=== PATIENT | female | born 1965 | race Caucasian/White ===

== ENCOUNTER 2018-06-09 05:48 | Inpatient (IN) | payer OTHER, SELFPAY ==
[2018-06-09] VITALS (13 sets, daily range): BP systolic 84–126; BP diastolic 53–68; PULSE 82–129; RESP 12–25; TEMP 36.2–37.4; O2SAT 89–96; BMI 33.5
--- NOTE | 2018-06-09 06:26 | DI.RAD.S_ITS ---
PROCEDURE: XR ACUTE ABDOMEN SERIES INDICATIONS: Abdominal pain TECHNIQUE: One view chest and two views of the abdomen were acquired. COMPARISON: None. FINDINGS: Surgical changes and devices: None. Chest: Lungs are clear. Heart size is normal. No pleural effusions. No pneumoperitoneum. Abdomen: Scattered air-fluid levels are present and there are dilated bowel loops measuring up to 6.0 cm in the left abdomen. No suspicious calcifications. Visualized solid organ contours appear normal. Bones: No suspicious bony lesions. Scattered discogenic changes and mild bilateral hip joint degeneration. IMPRESSION: Bowel gas pattern suggesting partial or developing small bowel obstruction. No definite transition point identified. Recommend clinical correlation and if needed continued surveillance with serial abdominal series radiographs Dictated by: Mateo Stephenson M.D. on 06/09/2018 at 8:21 Approved by: Mateo Stephenson M.D. on 06/09/2018 at 8:23
--- NOTE | 2018-06-09 06:30 | ED.ABDPAIN ---
HPI - Abdominal Pain General Chief Complaint: Abdominal Pain Stated Complaint: right side pain, nausea heartburn Time Seen by Provider: 06/09/18 06:00 Source: patient and family Mode of arrival: ambulatory Limitations: no limitations History of Present Illness HPI narrative: 53-year-old female with history of hypertension and hyperlipidemia as well as 3 C sections presents with increasing right-sided abdominal pain for the fast through 4 days. Additionally she has had decreased appetite and increased episodes of vomiting. She denies any bowel movement for the past few days and has passed no flatus today. Patient's pain is made much worse with any motion and improves with rest MD complaint: abdominal pain Onset (ago): day(s) Pain Consistency: constant Location: diffuse Severity: moderate Quality: cramping and aching Radiation: none Migration to: no migration Relieving factors: nothing Exacerbating factors: nothing Associated symptoms: nausea and vomiting Related Data Previous Rx's Medication Instructions Recorded simvastatin [Zocor] 40 mg PO HS #30 tab 04/28/18 levothyroxine [Synthroid] 137 mcg PO QAM #30 tab 05/25/18 lisinopril 10 mg PO QDAY #30 tab 05/25/18 Allergies Allergy/AdvReac Type Severity Reaction Status Date / Time sunflower seeds Allergy Intermediate facial Uncoded 04/02/18 09:33 swelling ERYTHROMYCIN Allergy Mild Uncoded 04/02/18 09:33 Review of Systems Review of Systems All systems reviewed & are unremarkable except as noted in HPI and below Constitutional Denies chills, Denies fever(s), Denies lethargy and Denies weakness Eyes Denies change in vision, Denies eye discharge, Denies irritation and Denies loss of vision ENT Ears, Nose, Mouth, and Throat: Denies change in voice, Denies neck pain and Denies sore throat Cardiovascular Denies chest pain, Denies irregular heart rhythm, Denies lightheadedness, Denies palpitations, Denies dyspnea, Denies dyspnea on exertion and Denies orthopnea Respiratory Denies cough, Denies dyspnea, Denies dyspnea on exertion and Denies wheezing Gastrointestinal Gastrointestinal: Reports abdominal pain, Denies change in bowel habits, Denies diarrhea, Reports nausea and Reports vomiting Genitourinary Denies hematuria, Denies flank pain, Denies urinary incontinence and Denies urinary urgency Musculoskeletal Denies neck pain Integumentary/Breasts Denies pruritus, Denies erythema, Denies rash and Denies wounds Neurologic Denies confusion, Denies loss of vision and Denies weakness Psychiatric Denies anxiety, Denies confusion, Denies depression, Denies homicidal ideation and Denies suicidal ideation Endocrine Denies palpitations Hematologic/Lymphatic Denies easy bruising Allergic/Immunologic Denies wheezing [facility] Social History Smoking Status: Never smoker Exam Narrative Exam Narrative: GENERAL: Very ill 53-year-old female, caring emesis basin HEAD: Atraumatic. Normocephalic. No temporal or scalp tenderness. EYES: Pupils equal round and reactive. Extraocular motions intact. No scleral icterus. No injection or drainage. ENT: Nose without bleeding, purulent drainage or septal hematoma. Throat without erythema, tonsillar hypertrophy or exudate. Uvula midline. Airway patent. NECK: Trachea midline. No JVD or lymphadenopathy. Supple, nontender, no meningeal signs. CARDIOVASCULAR: Tachycardic but regular. Without murmurs gallops or rubs RESPIRATORY: Clear to auscultation. Breath sounds equal bilaterally. No wheezes, rales, or rhonchi. GASTROINTESTINAL: Abdomen is soft but tender, primarily on the right side with decreased bowel sounds EXTREMITIES: No clubbing, cyanosis, or edema. No joint tenderness, effusion, or edema noted. BACK: Nontender without deformity or crepitance. No flank tenderness. NEURO: AOx3. SKIN: No rash or erythema. Initial Vital Signs Initial Vital Signs: Vital Signs Temperature 99.3 F 06/09/18 05:56 Pulse Rate 129 H 06/09/18 05:56 Respiratory Rate 18 06/09/18 05:56 Blood Pressure 84/65 L 06/09/18 05:56 Pulse Oximetry 96 06/09/18 05:56 Course Decision to Admit Date: 06/09/18 Decision to Admit time: 06:08 Orders Ordered: ED Orders 06/09/18 06:19 Complete Blood Count AUTO DIFF Stat Comprehensive Metabolic Panel Stat Lactate (Lactic Acid) Stat Lipase Stat Procalcitonin Stat 06/09/18 06:26 XR acute abdomen series Stat 06/09/18 06:30 Blood Culture Stat Hydromorphone HCl (Dilaudid) 0.5 mg IV NOW PRN PRN Reason: Pain, Severe (7-10) Last Admin: 06/09/18 08:20 Dose: 0.5 mg Sodium Chloride (Normal Saline 0.9%) 1,000 mls @ 150 mls/hr IV CONT LAN Last Admin: 06/09/18 07:45 Dose: 150 mls/hr Ondansetron HCl (Zofran) 4 mg IV Q4HR PRN PRN Reason: Nausea And Vomiting Last Admin: 06/09/18 07:45 Dose: 4 mg Discontinued Medications Lactated Ringer's (Lactated Ringers) 1,000 mls @ 1,000 mls/hr IV BOLUS ONE Stop: 06/09/18 07:14 Last Admin: 06/09/18 08:21 Dose: 1,000 mls/hr Reevaluation(s) Reevaluation #1: Patient feeling better after placement of NG tube. Over 800 cc of greenish fluid Vital Signs - 8 hr 06/09/18 05:56 06/09/18 06:38 06/09/18 06:58 Temperature 99.3 F Pulse Rate 129 H 108 H 104 H Respiratory Rate 18 25 H 18 Blood Pressure 84/65 L Blood Pressure [Right Arm] 117/63 108/66 Pulse Oximetry 96 95 93 MDM - Abdominal Pain Differential Diagnosis Differential diagnosis: Likely abdominal pain, acute appendicitis, calculus of kidney, constipation, diverticulitis, endometriosis and gastroenteritis Medical Records Attestation: I reviewed the patient's medical records. Lab Data Attestation: I reviewed the patient's lab results. Result diagrams: 06/09/18 06:19 06/09/18 06:19 Lab Results 06/09/18 06/09/18 06/09/18 Range/Units 06:19 06:19 06:19 WBC 15.4 H (4.5-11.0) X10^3/uL RBC 5.67 H (4.0-5.2) X10^6/uL Hgb 15.9 (12.0-16.0) g/dL Hct 45.5 (36-46) % MCV 80.2 (80-100) fL MCH 28.1 (26-34) PG MCHC 35.0 (30-36) % RDW 13.9 (11.6-14.8) % Plt Count 590 H (150-400) X10^3/uL Neut % (Auto) Not Reportable Lymph % (Auto) Not Reportable [place] % (Auto) Not Reportable Eos % (Auto) Not Reportable Baso % (Auto) Not Reportable Total Counted 100 Seg Neutrophils % 68.0 (38-70) % Band Neutrophils % 16.0 H (3-7) % Lymphocytes % (Manual) 9.0 L (25-45) % Atypical Lymphs % 2.0 H ( - 0) % Monocytes % (Manual) 5.0 (2-11) % Neutrophils # (Manual) 83595 H (7047-7810) /uL Platelet Estimate Increased on smear RBC Morphology Not Reportable Sodium 127 L (137-145) mmol/L Potassium 4.1 (3.4-5.1) mmol/L Chloride 82 L (98-107) mmol/L Carbon Dioxide 30 (22-32) mmol/L BUN 67 H (7-17) mg/dL Creatinine 2.50 H (0.52-1.04) mg/dL Estimated GFR 20.0 L (>60) mL/min BUN/Creatinine Ratio 26.8 H (6-22) Glucose 224 H (70-100) mg/dL Lactate (0.7-2.1) mmol/L Calcium 10.1 (8.4-10.2) mg/dL Total Bilirubin 0.9 (0.2-1.3) mg/dL AST 90 H (14-36) IU/L ALT 104 H (9-52) IU/L Alkaline Phosphatase 105 (38-126) U/L Total Protein 6.6 (6.3-8.2) g/dL Albumin 3.8 (3.5-5.0) g/dL Globulin 2.8 (1.7-4.1) g/dL Albumin/Globulin Ratio 1.4 (1.0-2.8) Lipase 261 (23-300) U/L Procalcitonin 1.00 H (<0.5) ng/mL 06/09/18 Range/Units 06:19 WBC (4.5-11.0) X10^3/uL RBC (4.0-5.2) X10^6/uL Hgb (12.0-16.0) g/dL Hct (36-46) % MCV (80-100) fL MCH (26-34) PG MCHC (30-36) % RDW (11.6-14.8) % Plt Count (150-400) X10^3/uL Neut % (Auto) Lymph % (Auto) [place] % (Auto) Eos % (Auto) Baso % (Auto) Total Counted Seg Neutrophils % (38-70) % Band Neutrophils % (3-7) % Lymphocytes % (Manual) (25-45) % Atypical Lymphs % ( - 0) % Monocytes % (Manual) (2-11) % Neutrophils # (Manual) (6212-6024) /uL Platelet Estimate RBC Morphology Sodium (137-145) mmol/L Potassium (3.4-5.1) mmol/L Chloride (98-107) mmol/L Carbon Dioxide (22-32) mmol/L BUN (7-17) mg/dL Creatinine (0.52-1.04) mg/dL Estimated GFR (>60) mL/min BUN/Creatinine Ratio (6-22) Glucose (70-100) mg/dL Lactate 1.8 (0.7-2.1) mmol/L Calcium (8.4-10.2) mg/dL Total Bilirubin (0.2-1.3) mg/dL AST (14-36) IU/L ALT (9-52) IU/L Alkaline Phosphatase (38-126) U/L Total Protein (6.3-8.2) g/dL Albumin (3.5-5.0) g/dL Globulin (1.7-4.1) g/dL Albumin/Globulin Ratio (1.0-2.8) Lipase (23-300) U/L Procalcitonin (<0.5) ng/mL Discharge Plan Departure Patient Disposition: Admitted As Inpatient Clinical Impression: Small bowel obstruction
[2018-06-09 06:55] LABS: Alanine Aminotransferase 104 IU/L (9-52); Albumin 3.8 g/dL (3.5-5.0); Albumin Globulin Ratio 1.4 (1.0-2.8); Alkaline Phosphatase 105 U/L (38-126); Aspartate Aminotransferase 90 IU/L (14-36); BUN Creatinine Ratio 26.8 (6-22); Bilirubin Total 0.9 mg/dL (0.2-1.3); Blood Urea Nitrogen 67 mg/dL (7-17); Calcium 10.1 mg/dL (8.4-10.2); Carbon Dioxide 30 mmol/L (22-32); Chloride 82 mmol/L (98-107); Globulin 2.8 g/dL (1.7-4.1); Glucose 224 mg/dL (70-100); HEMOLYSIS < 15 (0-50); Lipase 261 U/L (23-300); Potassium 4.1 mmol/L (3.4-5.1); Sodium 127 mmol/L (137-145); Total Protein 6.6 g/dL (6.3-8.2)
[2018-06-09 06:56] LABS: Lactate (Lactic Acid) 1.8 mmol/L (0.7-2.1)
[2018-06-09 07:18] LABS: Hematocrit 45.5 % (36-46); Hemoglobin 15.9 g/dL (12.0-16.0); Mean Corpuscular Hemoglobin 28.1 PG (26-34); Mean Corpuscular Volume 80.2 fL (80-100); Platelet Count 590 X10^3/uL (150-400); Red Blood Cell Count 5.67 X10^6/uL (4.0-5.2); Red Cell Distribution Width 13.9 % (11.6-14.8); White Blood Cell Count 15.4 X10^3/uL (4.5-11.0)
[2018-06-09 07:19] LABS: Add Manual Diff / Slide Review YES
[2018-06-09] MEDS: SODIUM CHLORIDE 0.9% 1,000 ML 150 ML IV (07:45)
[2018-06-09] MEDS: ONDANSETRON 4 MG/2 ML INJ IV (07:45)
[2018-06-09 07:48] LABS: Neutrophils Absolute Manual 12936 /uL (3000-5900); Total Cells Counted 100
[2018-06-09 07:49] LABS: Platelet Estimate Increased on smear
[2018-06-09] MEDS: HYDROMORPHONE 1 MG INJ 0.5 MG IV ×4 (08:20→21:05)
[2018-06-09] MEDS: LACTATED RINGERS 1,000 ML 1000 ML IV (08:21)
--- NOTE | 2018-06-09 10:09 | PC.NURSE ---
0900- Patient moved form stretcher to a hospital bed. Reports she is much more comfortable.
[2018-06-09] MEDS: TETRACAINE/BENZOCAINE/BUTAMBEN (CETACAINE) BOTTLE 1 SPRAY TOP (11:57)
[2018-06-09] MEDS: DEXTROSE 5%-0.45% NS 1,000 ML 125 ML IV (13:46)
--- NOTE | 2018-06-09 14:45 | PC.NURSE ---
admission pt arrived on the floor in a bed. States pain present in throat and abd. offered dilaudid which pt took around 1500. Sleeping afterwards. pt on continuous pulse ox, while sleeping sats around 88-90%. will recheck and place on O2 if needed. hourly rounding provided, call light within reach.
[2018-06-09] MEDS: SODIUM CHLORIDE 0.9% 1,000 ML 1000 ML IV ×2 (16:03→19:38)
--- NOTE | 2018-06-09 19:11 | P.HP_ITS ---
History of Present Illness Date Patient Seen: 06/09/18 Time Patient Seen: 10:06 Chief complaint: right side pain, nausea heartburn Narrative: Celena is a pleasant 53-year-old lady who presented to the emergency room with several days of nausea and vomiting. She reports that she initially felt quite ill Friday and Friday. She thought she was getting better after that but then started vomiting again yesterday. Her reports that she has been drinking lots of fluids but not keeping anything down. She denies any abdominal pain. She reports that she had a bowel movement yesterday and has passed a small amount of flatus as well. She denies any symptoms similar to this in the past. She does not have any known sick contacts. She has not had fever at home that she is aware of but has felt generalized malaise. Patient History Medical History delivery w/o mention of indication, delsun, shraddha hospitaliz (Acute) Family & Social History Family History: Reviewed 06/09/18 by Whit Cook MD Social History: household members spouse Prior Living Arrangements House Safety & Behavioral: Feels Safe in Current Yes Environment Been Physically Hurt or No Threatened By a Person Suicidal Ideation Description None Suicide Plan Description No Plan Tobacco & Substance use: Smoking Status Never smoker alcohol intake frequency a few times a week Substance Use Type does not use Meds Home Medications Medication Instructions Recorded Confirmed Type simvastatin [Zocor] 40 mg PO HS #30 tab 04/28/18 Rx levothyroxine [Synthroid] 137 mcg PO QAM #30 tab 05/25/18 Rx lisinopril 10 mg PO QDAY #30 tab 05/25/18 Rx Allergies Allergy/AdvReac Type Severity Reaction Status Date / Time erythromycin base Allergy Mild Verified 06/09/18 16:55 sunflower seeds Allergy Intermediate facial Uncoded 04/02/18 09:33 swelling Review of Systems Review of Systems All systems reviewed & are unremarkable except as noted in HPI and below Exam Vital Signs (past 8 hours): - 06/09/18 11:00 06/09/18 12:11 06/09/18 12:59 Temperature Pulse Rate 87 87 88 Respiratory Rate 21 18 18 Blood Pressure 111/56 L Blood Pressure [Right Arm] 107/59 L 116/61 Pulse Oximetry 93 93 93 06/09/18 16:06 06/09/18 17:28 Temperature 97.1 F L Pulse Rate 87 Respiratory Rate 16 Blood Pressure 117/66 Blood Pressure [Right Arm] Pulse Oximetry 95 94 Oxygen Delivery Method Nasal Cannula Oxygen Flow Rate 2 Narrative Exam Narrative: Very pleasant and ill but comfortable appearing lady. HEENT: Normocephalic and atraumatic, pupils equal round and reactive to light accommodation with anicteric sclera. Lungs: Clear to auscultation bilaterally Heart: Regular rate and rhythm without murmur rub or gallop. Abdomen: Soft, nontender to palpation. Hyperactive bowel sounds. Well-healed Pfannenstiel incision. No defects palpable Extremities: Warm and well perfused Objective Labs Result Diagrams: 06/09/18 06:19 06/09/18 06:19 Labs: Laboratory Results - last 24 hr 06/09/18 06/09/18 06/09/18 06:19 06:19 06:19 WBC 15.4 H RBC 5.67 H Hgb 15.9 Hct 45.5 MCV 80.2 MCH 28.1 MCHC 35.0 RDW 13.9 Plt Count 590 H Neut % (Auto) Not Reportable Lymph % (Auto) Not Reportable [place] % (Auto) Not Reportable Eos % (Auto) Not Reportable Baso % (Auto) Not Reportable Total Counted 100 Seg Neutrophils % 68.0 Band Neutrophils % 16.0 H Lymphocytes % (Manual) 9.0 L Atypical Lymphs % 2.0 H Monocytes % (Manual) 5.0 Neutrophils # (Manual) 41049 H Platelet Estimate Increased on smear RBC Morphology Not Reportable Sodium 127 L Potassium 4.1 Chloride 82 L Carbon Dioxide 30 BUN 67 H Creatinine 2.50 H Estimated GFR 20.0 L BUN/Creatinine Ratio 26.8 H Glucose 224 H Lactate Calcium 10.1 Total Bilirubin 0.9 AST 90 H ALT 104 H Alkaline Phosphatase 105 Total Protein 6.6 Albumin 3.8 Globulin 2.8 Albumin/Globulin Ratio 1.4 Lipase 261 Procalcitonin 1.00 H 06/09/18 06:19 WBC RBC Hgb Hct MCV MCH MCHC RDW Plt Count Neut % (Auto) Lymph % (Auto) [place] % (Auto) Eos % (Auto) Baso % (Auto) Total Counted Seg Neutrophils % Band Neutrophils % Lymphocytes % (Manual) Atypical Lymphs % Monocytes % (Manual) Neutrophils # (Manual) Platelet Estimate RBC Morphology Sodium Potassium Chloride Carbon Dioxide BUN Creatinine Estimated GFR BUN/Creatinine Ratio Glucose Lactate 1.8 Calcium Total Bilirubin AST ALT Alkaline Phosphatase Total Protein Albumin Globulin Albumin/Globulin Ratio Lipase Procalcitonin Assessment & Plan Plan: Assessment/Plan Narrative: Nausea and vomiting with possible early or developing small bowel obstruction. This is confirmed on plain films of the abdomen. CT scan was not done today due pre renal azotemia and elevated creatinine. There are no signs of surgical emergency at this time. I recommended admission with hydration and supportive care. Nasogastric tube has been placed in the emergency room and we will maintain it on low intermittent suction. Strict I&O measurement overnight. We will recheck labs in the morning including lactate. If she is not improving overnight, we may consider CT scan in the a.m.. Quality VTE Deep Vein Thrombosis/Pulmonary Embolism Present on Admission: No
--- NOTE | 2018-06-09 22:54 | PC.NURSE ---
alert and oriented x4, VSS but requiring 2L NC to maintain O2 levels above 92%, voided once this shift with 250ml out (since 529), total of 2 liters in boluses with maintenance fluid throughout the day. standby assist due to equipment and lines. NGT to low intermittent suction 650, tele reading NSR. pain controlled with IVP dilaudid.
[2018-06-10] VITALS (10 sets, daily range): BP systolic 113–135; BP diastolic 57–70; PULSE 81–97; RESP 12–20; TEMP 36.6–38.2; O2SAT 91–95
[2018-06-10] MEDS: HYDROMORPHONE 0.5 MG INJ IV ×4 (02:07→13:48)
[2018-06-10] MEDS: DEXTROSE 5%-0.45% NS 1,000 ML 125 ML IV ×3 (02:13→14:55)
[2018-06-10 05:29] LABS: Basophils Percent Auto 0.1 % (0-2); Eosinophils Percent Auto 1.4 % (2-4); Hematocrit 39.8 % (36-46); Hemoglobin 13.6 g/dL (12.0-16.0); Lymphocytes Percent Auto 4.7 % (25-40); Mean Corpuscular HGB Conc 34.2 % (30-36); Mean Corpuscular Hemoglobin 28.1 PG (26-34); Mean Corpuscular Volume 82.3 fL (80-100); Monocytes Percent Auto 10.4 % (3-14); Neutrophils Absolute Auto 7600 /uL (3000-5900); Neutrophils Percent Auto 83.4 % (50-75); Platelet Count 390 X10^3/uL (150-400); Red Blood Cell Count 4.84 X10^6/uL (4.0-5.2); White Blood Cell Count 9.1 X10^3/uL (4.5-11.0)
[2018-06-10 05:42] LABS: Alanine Aminotransferase 83 IU/L (9-52); Albumin 3.1 g/dL (3.5-5.0); Albumin Globulin Ratio 1.2 (1.0-2.8); Alkaline Phosphatase 81 U/L (38-126); Aspartate Aminotransferase 45 IU/L (14-36); BUN Creatinine Ratio 31.4 (6-22); Bilirubin Total 0.4 mg/dL (0.2-1.3); Blood Urea Nitrogen 66 mg/dL (7-17); Calcium 8.7 mg/dL (8.4-10.2); Carbon Dioxide 35 mmol/L (22-32); Chloride 89 mmol/L (98-107); Estimated Glomerular Filt Rate 24.5 mL/min (>60); Globulin 2.6 g/dL (1.7-4.1); Glucose 149 mg/dL (70-100); HEMOLYSIS < 15 (0-50); Lactate (Lactic Acid) 0.6 mmol/L (0.7-2.1); Potassium 3.7 mmol/L (3.4-5.1); Sodium 130 mmol/L (137-145); Total Protein 5.7 g/dL (6.3-8.2)
[2018-06-10 06:43] LABS: Add Manual Diff / Slide Review NO
[2018-06-10] MEDS: SODIUM CHLORIDE 0.9% 1,000 ML 1000 ML IV ×2 (08:53→17:46)
[2018-06-10] MEDS: ONDANSETRON 4 MG/2 ML INJ IV ×2 (08:53→21:59)
--- NOTE | 2018-06-10 11:42 | CM.DANOTE ---
DCP: Case received, EMR reviewed and met with patient. Introduced self and role. DCP template completed with information currently available. Patient is a 53 year old female who admitted yesterday morning to the care of the hospitalist team. PCP: Dr. Garcia. P[facility]: [facility]. Patient carries a diagnosis of small bowel obstruction. Came to hospital with symptoms of nausea and vomiting. Patient has an NG tube at this time. Lives in [place] with spouse, and is currently employed. P: DCP to continue to assess. Plan is for patient to go home when she is stable. Delisa Fletcher RN/Fan Blade Truer
--- NOTE | 2018-06-10 16:03 | P.PN_ITS ---
Subjective Date Patient Seen: 06/10/18 Time Patient Seen: 16:02 Interval history: Feeling a little better today. Reports that she does not think she has passed any gas today but did have a little bit last night. No particular nausea. Her only complaint of pain is her throat. Exam Vital Signs (past 8 hours): - 06/10/18 08:02 06/10/18 12:02 06/10/18 15:39 Temperature 99.3 F Pulse Rate 86 Respiratory Rate 16 Blood Pressure 123/62 H Pulse Oximetry 95 94 93 Oxygen Delivery Method Room Air Oxygen Flow Rate 0 Narrative Exam Narrative: Abdomen is very soft, active bowel sounds, no rebound or guarding. No tenderness to palpation. Objective Labs Result Diagrams: 06/10/18 05:14 06/10/18 05:14 Labs: Laboratory Results - last 24 hr 06/10/18 06/10/18 06/10/18 05:14 05:14 05:14 WBC 9.1 RBC 4.84 Hgb 13.6 Hct 39.8 MCV 82.3 MCH 28.1 MCHC 34.2 RDW 14.0 Plt Count 390 Neut % (Auto) 83.4 H Lymph % (Auto) 4.7 L [place] % (Auto) 10.4 Eos % (Auto) 1.4 L Baso % (Auto) 0.1 Neut # (Auto) 7600 H Sodium 130 L Potassium 3.7 Chloride 89 L Carbon Dioxide 35 H BUN 66 H Creatinine 2.10 H Estimated GFR 24.5 L BUN/Creatinine Ratio 31.4 H Glucose 149 H Lactate 0.6 L Calcium 8.7 Total Bilirubin 0.4 AST 45 H ALT 83 H Alkaline Phosphatase 81 Total Protein 5.7 L Albumin 3.1 L Globulin 2.6 Albumin/Globulin Ratio 1.2 Assessment & Plan Plan: Assessment/Plan Narrative: Patient is clinically slightly better. Objectively, her labs are encouraging. We will continue resuscitation. Recheck labs in the morning. Quality VTE Deep Vein Thrombosis/Pulmonary Embolism Present on Admission: No
[2018-06-10] MEDS: HYDROMORPHONE 1 MG INJ 0.5 MG IV (19:28)
[2018-06-11] VITALS (11 sets, daily range): BP systolic 128–135; BP diastolic 55–73; PULSE 85–91; RESP 16–22; TEMP 37–37.5; O2SAT 1–95
[2018-06-11] MEDS: SODIUM CHLORIDE 0.9% 1,000 ML 150 ML IV (00:08)
[2018-06-11] MEDS: HYDROMORPHONE 1 MG INJ 0.5 MG IV ×5 (00:10→22:46)
[2018-06-11] MEDS: DEXTROSE 5%-0.45% NS 1,000 ML 125 ML IV ×3 (00:18→21:25)
[2018-06-11 05:19] LABS: Basophils Percent Auto 0.1 % (0-2); Eosinophils Percent Auto 0.4 % (2-4); Hematocrit 40.2 % (36-46); Hemoglobin 13.7 g/dL (12.0-16.0); Lymphocytes Percent Auto 4.7 % (25-40); Mean Corpuscular Hemoglobin 27.9 PG (26-34); Monocytes Percent Auto 8.5 % (3-14); Neutrophils Absolute Auto 6600 /uL (3000-5900); Neutrophils Percent Auto 86.3 % (50-75); Platelet Count 376 X10^3/uL (150-400); Red Cell Distribution Width 13.8 % (11.6-14.8); White Blood Cell Count 7.6 X10^3/uL (4.5-11.0)
[2018-06-11 05:22] LABS: BUN Creatinine Ratio 32.1 (6-22); Blood Urea Nitrogen 45 mg/dL (7-17); Calcium 8.2 mg/dL (8.4-10.2); Carbon Dioxide 35 mmol/L (22-32); Chloride 92 mmol/L (98-107); Glucose 146 mg/dL (70-100); HEMOLYSIS < 15 (0-50); Potassium 3.7 mmol/L (3.4-5.1); Sodium 132 mmol/L (137-145)
[2018-06-11 06:06] LABS: Add Manual Diff / Slide Review NO
[2018-06-11] MEDS: ONDANSETRON 4 MG/2 ML INJ IV ×2 (16:06→22:45)
--- NOTE | 2018-06-11 18:31 | P.HP_ITS ---
History of Present Illness Chief complaint: right side pain, nausea heartburn Narrative: Celena is a pleasant 53-year-old lady who presented to the emergency room with several days of nausea and vomiting. She reports that she initially felt quite ill Friday and Friday. She thought she was getting better after that but then started vomiting again yesterday. Her reports that she has been drinking lots of fluids but not keeping anything down. She denies any abdominal pain. She reports that she had a bowel movement yesterday and has passed a small amount of flatus as well. She denies any symptoms similar to this in the past. She does not have any known sick contacts. She has not had fever at home that she is aware of but has felt generalized malaise. Patient History Medical History delivery w/o mention of indication, shraddha ramirez (Acute) Family & Social History Family History: Reviewed 06/09/18 by Whit Cook MD Social History: household members spouse Prior Living Arrangements House Safety & Behavioral: Feels Safe in Current Yes Environment Been Physically Hurt or No Threatened By a Person Suicidal Ideation Description None Suicide Plan Description No Plan Tobacco & Substance use: Smoking Status Never smoker alcohol intake frequency a few times a week Substance Use Type does not use Meds Home Medications Medication Instructions Recorded Confirmed Type simvastatin [Zocor] 40 mg PO HS #30 tab 04/28/18 06/09/18 Rx levothyroxine [Synthroid] 137 mcg PO QAM #30 tab 05/25/18 06/09/18 Rx lisinopril 10 mg PO QDAY #30 tab 05/25/18 06/09/18 Rx Allergies Allergy/AdvReac Type Severity Reaction Status Date / Time erythromycin base Allergy Mild Verified 06/09/18 16:55 sunflower seeds Allergy Intermediate facial Uncoded 04/02/18 09:33 swelling Review of Systems Review of Systems All systems reviewed & are unremarkable except as noted in HPI and below Exam Vital Signs (past 8 hours): - 06/11/18 13:53 06/11/18 15:00 06/11/18 15:42 Temperature 99.5 F 99.5 F Pulse Rate 87 89 Respiratory Rate 16 16 Blood Pressure 128/55 L 131/72 Pulse Oximetry 90 L 92 91 Fraction of Inspired Oxygen 21 Oxygen Delivery Method Room Air Oxygen Flow Rate 0 Narrative Exam Narrative: Very pleasant an ill-appearing middle-aged lady HEENT: Normocephalic and atraumatic, pupils equal round and reactive to light and accommodation. Sclera are anicteric. Lungs: Clear to auscultation bilaterally Heart: Regular rate and rhythm without murmur rub or gallop Abdomen: Soft, completely nontender to palpation. Hyperactive bowel sounds. Well-healed Pfannenstiel incision. No defects palpable. Extremities: Warm and well perfused without obvious edema Objective Labs Result Diagrams: 06/11/18 04:58 06/11/18 04:58 Labs: Laboratory Results - last 24 hr 06/11/18 06/11/18 04:58 04:58 WBC 7.6 RBC 4.90 Hgb 13.7 Hct 40.2 MCV 82.0 MCH 27.9 MCHC 34.0 RDW 13.8 Plt Count 376 Neut % (Auto) 86.3 H Lymph % (Auto) 4.7 L [place] % (Auto) 8.5 Eos % (Auto) 0.4 L Baso % (Auto) 0.1 Neut # (Auto) 6600 H Sodium 132 L Potassium 3.7 Chloride 92 L Carbon Dioxide 35 H BUN 45 H Creatinine 1.40 H Estimated GFR 39.0 L BUN/Creatinine Ratio 32.1 H Glucose 146 H Calcium 8.2 L Quality VTE Deep Vein Thrombosis/Pulmonary Embolism Present on Admission: No
--- NOTE | 2018-06-11 18:31 | PM.PN.1 ---
Subjective Date Patient Seen: 06/11/18 Time Patient Seen: 18:32 Interval history: Celena reports she really does not feel much different today. She denies any nausea. She has denies any abdominal pain. Her NG tube continues to have fairly prolific output. It is dark green in color but is not foul smelling. She reports that she has not been out of bed. She is urinating more and she thinks the color may be improving. Her is at her bedside. Exam Vital Signs (past 8 hours): - 06/11/18 13:53 06/11/18 15:00 06/11/18 15:42 Temperature 99.5 F 99.5 F Pulse Rate 87 89 Respiratory Rate 16 16 Blood Pressure 128/55 L 131/72 Pulse Oximetry 90 L 92 91 Fraction of Inspired Oxygen 21 Oxygen Delivery Method Room Air Oxygen Flow Rate 0 Narrative Exam Narrative: Lungs: Clear to auscultation bilaterally Heart: Regular rate and rhythm without murmur rub or gallop Abdomen: Soft, hyperactive bowel tones, completely nontender to palpation. Extremities: Warm and well perfused Objective Labs Result Diagrams: 06/11/18 04:58 06/11/18 04:58 Labs: Laboratory Results - last 24 hr 06/11/18 06/11/18 04:58 04:58 WBC 7.6 RBC 4.90 Hgb 13.7 Hct 40.2 MCV 82.0 MCH 27.9 MCHC 34.0 RDW 13.8 Plt Count 376 Neut % (Auto) 86.3 H Lymph % (Auto) 4.7 L [place] % (Auto) 8.5 Eos % (Auto) 0.4 L Baso % (Auto) 0.1 Neut # (Auto) 6600 H Sodium 132 L Potassium 3.7 Chloride 92 L Carbon Dioxide 35 H BUN 45 H Creatinine 1.40 H Estimated GFR 39.0 L BUN/Creatinine Ratio 32.1 H Glucose 146 H Calcium 8.2 L Assessment & Plan Plan: Assessment/Plan Narrative: Small bowel obstruction in the setting of a pleasant lady with a history of C-sections and a hysterectomy. She rolls labs are improving with a creatinine down from 2.5 to 1.4 and some improvement in her left shift. Total white cell count has also normalized. She is looking better but the degree of NG tube aspirate is still impressive. We are going to continue to hydrate her today and recheck labs and plain films in the morning. If we do not see significant improvement, consider CT scan tomorrow. Quality VTE Deep Vein Thrombosis/Pulmonary Embolism Present on Admission: No
[2018-06-11] MEDS: SODIUM CHLORIDE 0.9% 1,000 ML 1000 ML IV (19:01)
[2018-06-12] VITALS (21 sets, daily range): BP systolic 114–139; BP diastolic 59–75; PULSE 65–83; RESP 14–20; TEMP 36.1–37.2; O2SAT 90–96; BMI 36.3
--- NOTE | 2018-06-12 | PATH_ITS ---
[facility] Accession Number: [id number] . 01 Material submitted: . SMALL BOWEL OBSTRUCTION BODY . 02 Diagnosis: GROSS DIAGNOSIS: Calculus (3.8 x 2.8 x 2.5 cm), apparently causing small bowel obstruction. MRV/06/17/2018 . 02 Electronically signed: . Garcia Jacobs MD, Pathologist NPI- [id number] . 01 Gross description: . Received in formalin, labeled small bowel obstruction body, is a brown smooth hard calculus (3.8 x 2.8 x 2.5 cm) with a clear crystalline cut surface. The tissue is not suitable for histological analysis, therefore no sections are submitted. ([id number]) /MRV . 02 Pathologist provided ICD-10: K56.699 . 02 CPT . 777661 Performed at: 01 [facility] [address] [place] [address], [place], [place] [id number] MD Ulises Shrestha MD Phone: [phone] Performed at: 02 [facility] [address] [place], [place] [id number] MD Reji Hooker MD Phone: [phone]
--- NOTE | 2018-06-12 | DI.RAD.S_ITS ---
PROCEDURE: XR ACUTE ABDOMEN SERIES INDICATIONS: Small-bowel obstruction TECHNIQUE: One view chest and two views of the abdomen were acquired. COMPARISON: [facility], CR, XR ACUTE ABDOMEN SERIES, 06/09/2018, 6:07. FINDINGS: Surgical changes and devices: Nasogastric tube is present, side port is at the EG junction.. Chest: Lungs are clear. Heart size is normal. No pleural effusions. No pneumoperitoneum. Abdomen: Bowel gas pattern is abnormal with small bowel gas prominence over lower abdomen/pelvis, equivalent to that present A. No suspicious calcifications. Visualized solid organ contours appear normal. Bones: No suspicious bony lesions. IMPRESSION: Nasogastric tube in normal position, persistent small bowel gas prominence without free air, with the pattern of small bowel prominence suggesting presence of some degree of mural thickening of the small bowel. Etiology is uncertain, infectious versus ischemic injury is the likely cause. Dictated by: Dave Dunn M.D. on 06/12/2018 at 11:04 Approved by: Dave Dunn M.D. on 06/12/2018 at 11:06
--- NOTE | 2018-06-12 00:02 | PC.NURSE ---
Addendum entered by Nichole Gomez R.N. 06/12/18 06:58: Medicated with Zofran for continued nausea without emesis and with Dilaudid for 5/10 abdominal pain. O2 sat 95% so oxygen removed at this time. Original Note: Addendum entered by Nichole Gomez R.N. 06/12/18 06:32: Up to bathroom this morning with 1 assist. States pain is tolerable and is slightly nauseated after all the activity. O2 sat on 2L (increased earlier as sat was again down to 88% when asleep) is now 96% and patient is awake so oxygen decreased to 1L/min. Patient upset that ice chips not allowed during the night as has been having them previously; order from MD indicates NPO status with no mention of ice chips so had discussed with patient that MD will need to clarify this morning; patient indicates understanding. Original Note: Addendum entered by Nichole Gomez R.N. 06/12/18 02:47: Complains of nausea and 6/10 abdominal pain; medicated with Zofran + Dilaudid. Current O2 sat is 93% Original Note: Patient is alert and oriented. Breath sounds CTA but noted to be mouth breathing and sats dropping down to 85% while asleep so oxygen restarted at 1L/min with sat now at 92%; monitoring on continuous pulse oximetry to determine adequate oxygenation. HRR; on telemetry and has been SR on previous shift. Denies nausea. NG to LIS with brown contents noted in tubing/cannister. Remains NPO. BT present in right quads but sound tympanic; denies flatus and abdomen is distended. Denies urinary problems. Independent with bed mobility but reportedly gets up with SBA. Calf SCD's applied bilaterally. Reports 1 fall in past 3 months so is high fall risk and bed alarm activated.
[2018-06-12] MEDS: HYDROMORPHONE 1 MG INJ 0.5 MG IV ×3 (02:41→10:23)
[2018-06-12] MEDS: ONDANSETRON 4 MG/2 ML INJ IV ×5 (02:42→22:55)
[2018-06-12] MEDS: DEXTROSE 5%-0.45% NS 1,000 ML 125 ML IV (04:50)
[2018-06-12 06:22] LABS: BUN Creatinine Ratio 27.5 (6-22); Blood Urea Nitrogen 33 mg/dL (7-17); Calcium 7.8 mg/dL (8.4-10.2); Carbon Dioxide 38 mmol/L (22-32); Chloride 91 mmol/L (98-107); Estimated Glomerular Filt Rate 46.6 mL/min (>60); Glucose 146 mg/dL (70-100); HEMOLYSIS < 15 (0-50); Potassium 3.4 mmol/L (3.4-5.1); Sodium 133 mmol/L (137-145)
[2018-06-12 06:30] LABS: Add Manual Diff / Slide Review NO; Basophils Percent Auto 0.2 % (0-2); Eosinophils Percent Auto 1.8 % (2-4); Hematocrit 40.5 % (36-46); Hemoglobin 13.8 g/dL (12.0-16.0); Lymphocytes Percent Auto 6.4 % (25-40); Mean Corpuscular HGB Conc 33.9 % (30-36); Mean Corpuscular Volume 82.6 fL (80-100); Monocytes Percent Auto 10.9 % (3-14); Neutrophils Absolute Auto 8000 /uL (3000-5900); Neutrophils Percent Auto 80.7 % (50-75); Platelet Count 386 X10^3/uL (150-400); Red Blood Cell Count 4.91 X10^6/uL (4.0-5.2); Red Cell Distribution Width 13.8 % (11.6-14.8); White Blood Cell Count 9.9 X10^3/uL (4.5-11.0)
[2018-06-12 06:43] LABS: Procalcitonin 0.26 ng/mL (<0.5)
--- NOTE | 2018-06-12 11:31 | PM.PN.1 ---
Subjective Date Patient Seen: 06/12/18 Time Patient Seen: 11:31 Interval history: Celena reports that she is feeling about the same today. She says that she is having abdominal pain from all the ?flipping and flopping? in her abdomen. She is also uncomfortable in her throat. Overnight, her NG tube was continued to pour out fluid that is a dark brown color. In the last 24 hr she has had 3200 cc of output. She denies any flatus at all. She is nauseated at times. Exam Vital Signs (past 8 hours): - 06/12/18 03:53 06/12/18 06:23 06/12/18 07:25 Temperature 98.2 F 96.9 F L Pulse Rate 80 77 Respiratory Rate 18 18 Blood Pressure 134/75 138/74 Pulse Oximetry 95 96 93 Fraction of Inspired Oxygen 21 Oxygen Delivery Method Nasal Cannula Oxygen Flow Rate 0 Narrative Exam Narrative: Lungs: Essentially clear bilaterally Heart: Regular rate and rhythm without murmur rub or gallop Abdomen: Soft, mild tenderness to palpation is generalized in the abdomen. No specific site of greater tenderness. No peritoneal signs. Extremities: Warm and well perfused Objective Labs Result Diagrams: 06/12/18 05:41 06/12/18 05:41 Labs: Laboratory Results - last 24 hr 06/12/18 06/12/18 06/12/18 05:41 05:41 05:41 WBC 9.9 RBC 4.91 Hgb 13.8 Hct 40.5 MCV 82.6 MCH 28.0 MCHC 33.9 RDW 13.8 Plt Count 386 Neut % (Auto) 80.7 H Lymph % (Auto) 6.4 L [place] % (Auto) 10.9 Eos % (Auto) 1.8 L Baso % (Auto) 0.2 Neut # (Auto) 8000 H Sodium 133 L Potassium 3.4 Chloride 91 L Carbon Dioxide 38 H BUN 33 H Creatinine 1.20 H Estimated GFR 46.6 L BUN/Creatinine Ratio 27.5 H Glucose 146 H Calcium 7.8 L Procalcitonin 0.26 Assessment & Plan Plan: Assessment/Plan Narrative: One full 53-year-old lady with small bowel obstruction. She has failed conservative management. She is nearly fully resuscitated and an acceptable operative risk now. I have recommended laparotomy with lysis of adhesions and correction of small-bowel obstruction with indicated procedures. Risks and benefits were discussed with both the patient and her in the presence of her nurse. Consent is signed and on the chart. Quality VTE Deep Vein Thrombosis/Pulmonary Embolism Present on Admission: No
[2018-06-12] MEDS: CEFOTETAN 2 GM/50 ML PIGGYBACK IV (11:55)
--- NOTE | 2018-06-12 12:22 | SUR.OPER ---
Supine on padded OR bed, head on pillow, arms secured on padded arm boards at <90 degrees abduction, legs uncrossed, safety belt at thigh, tape over blanket over lower legs.
--- NOTE | 2018-06-12 13:20 | PM.OP.1 ---
Operative Date/Time/Diagnoses Date of procedure: 06/12/18 Time of procedure: 13:20 Pre-op diagnosis: Small-bowel obstruction Post-op diagnosis: same Procedure & Clinicians Procedure: Exploratory laparotomy with removal of small bowel foreign body and primary anastomosis Same procedure as scheduled: Yes Indications: High-grade small bowel obstruction Surgeon: Whit Cook Click Yes if Unassisted: Yes Anesthesia Type: General (Dr. Springer) and Local Operative Notes Findings: 1. 900 mL of free peritoneal fluid within the abdominal cavity 2. Distended and thickened proximal bowel loops 3. A 5 by 3 cm foreign body consistent with a large gallstone obstructing the lumen of the small bowel. Closure Type: primary Specimen(s): other (Small-bowel foreign body) Estimated Blood Loss (mL): 50 Procedure in detail: After obtaining informed consent, the patient brought to the operating room and placed in the supine position on the operating table. Following successful induction of general endotracheal anesthesia, appropriate padding of all bony prominences, and placement of appropriate monitors, the abdomen is prepped and draped in the standard surgical fashion. A time-out was held per SCOAP protocol. Following infiltration with local anesthetic to create a field block, an incision was created inferior to the umbilicus and carried down through the skin and subcutaneous tissue to reveal the fascia below. The fascia was opened sharply. Upon entering the small bowel we encountered a large volume of yellow tinged peritoneal fluid. This was aspirated. We immediately visualized distended and edematous loops of small bowel. This was followed distally until a large obstructing mass became obvious. This mass was mobile within the bowel but was causing an obstruction where it was too large to pass into the more distal loops. This segment of bowel was isolated and bowel loops applied proximally and distally to the mass. Towels were applied around the opening in multiple layers. The bowel in this area was then opened sharply in a longitudinal fashion and the mass removed. The mass itself was approximately 5 x 3 cm and was most consistent in appearance with a gallstone. The mucosa and the remainder of the bowel was normal in appearance. The longitudinal opening was then closed vertically with a JIMMY stapling device and the anastomosis oversewn with interrupted silk suture. Bowel contents were then milked proximally and distally to be sure the opening in the bowel was adequate. The abdomen was then irrigated copiously with warm saline solution aspirated free of all fluid. The NG tube was palpated in the stomach and was in good position. The right upper quadrant was palpated and I could not distinctly appreciate a gallbladder. I did not want to take the risk of disrupting any spontaneous fistula between the gallbladder and the bowel so I did not perform any further right upper quadrant dissection. The abdomen was checked once again for hemostasis. The omentum was placed over the bowel contents. The peritoneum was closed with a running Vicryl suture a looped Maxon was placed in the fascia and the skin and subcutaneous tissue were closed in layers. All sponge, needle, and instrument counts were correct at the conclusion of the case. The patient was allowed to awaken from anesthesia without difficulty and taken to the post anesthesia care unit in good condition. Complications: none Condition: stable Disposition: PACU Plan for aftercare: Return to acute Care for continued convalescence and support.
[2018-06-12] MEDS: HYDROMORPHONE 2 MG INJ 0.5 MG IV (13:45)
--- NOTE | 2018-06-12 13:50 | SUR.PHASEI ---
medicated for pain and nausea with significant improvement, states feeling much better. NG tube to med suction, stomach empties of 200+ cc of green liquid. verbal report to Dr. Cook regarding status of NG drainage. decreased to low suction when drainage stopped.
[2018-06-12] MEDS: METOCLOPRAMIDE 10 MG/2 ML INJ IV (13:59)
--- NOTE | 2018-06-12 14:01 | SUR.PHASEI ---
states pain tolerable now at 11/22. c/o continued nausea additional pain medication provided per orders.
[2018-06-12] MEDS: LACTATED RINGERS 1,000 ML 125 ML IV ×2 (15:13→22:55)
[2018-06-12] MEDS: HYDROMORPHONE 1 MG INJ IV (19:16)
[2018-06-12] MEDS: METOCLOPRAMIDE 10 MG/2 ML INJ 5 MG IV (20:43)
[2018-06-12] MEDS: KETOROLAC 30 MG/ML VIAL IV (22:55)
[2018-06-13] VITALS (9 sets, daily range): BP systolic 131–147; BP diastolic 68–76; PULSE 70–82; RESP 16–18; TEMP 36.6–36.9; O2SAT 91–97
[2018-06-13] MEDS: CEFOTETAN 2 GM/50 ML PIGGYBACK IV (01:18)
[2018-06-13] MEDS: HYDROMORPHONE 1 MG INJ IV (01:25)
--- NOTE | 2018-06-13 01:45 | PC.NURSE ---
Clinical Transformation Specialist Note: 0115: awake, having 4/10 pain in abdomen. Medicated with Dilaudid 1mg IV. NGT patent, to LIS. Wiggins catheter patent, and urine is clear trevor. Abdominal incision open to air; no drainage or redness noted. Fresh ice bag to abdomen per pt request.
[2018-06-13] MEDS: METOCLOPRAMIDE 10 MG/2 ML INJ 5 MG IV ×2 (06:31→21:42)
[2018-06-13] MEDS: LACTATED RINGERS 1,000 ML 125 ML IV ×3 (06:32→22:46)
[2018-06-13 06:36] LABS: Add Manual Diff / Slide Review NO; Basophils Percent Auto 0.1 % (0-2); Eosinophils Percent Auto 2.5 % (2-4); Hematocrit 36.2 % (36-46); Hemoglobin 12.3 g/dL (12.0-16.0); Lymphocytes Percent Auto 8.5 % (25-40); Mean Corpuscular HGB Conc 33.9 % (30-36); Mean Corpuscular Hemoglobin 28.1 PG (26-34); Mean Corpuscular Volume 82.8 fL (80-100); Monocytes Percent Auto 11.9 % (3-14); Neutrophils Absolute Auto 5100 /uL (3000-5900); Platelet Count 422 X10^3/uL (150-400); Red Blood Cell Count 4.37 X10^6/uL (4.0-5.2); Red Cell Distribution Width 14.1 % (11.6-14.8); White Blood Cell Count 6.6 X10^3/uL (4.5-11.0)
[2018-06-13 07:14] LABS: BUN Creatinine Ratio 23.3 (6-22); Blood Urea Nitrogen 28 mg/dL (7-17); Calcium 7.5 mg/dL (8.4-10.2); Carbon Dioxide 35 mmol/L (22-32); Chloride 94 mmol/L (98-107); Estimated Glomerular Filt Rate 46.6 mL/min (>60); Glucose 103 mg/dL (70-100); HEMOLYSIS < 15 (0-50); Potassium 3.6 mmol/L (3.4-5.1); Sodium 136 mmol/L (137-145)
[2018-06-13] MEDS: ENOXAPARIN 40 MG/0.4 ML SYRINGE SUBCUT (10:03)
--- NOTE | 2018-06-13 11:33 | PC.NURSE ---
Shift summary: Alert and oriented X3. Midline abd incision SHADIA and well-approximated with skin glue, no bleeding or drainage noted. Abd soft, BT+ (hypoactive). Reports she is passing occasional flatus. Rates abd pain 3/10 which is tolerable for her- she understands she can have pain meds anytime, just needs to ask. NG well-secured in L nare, set to LIS with dark brownish-green colored output. Denies N/V, remains NPO w/ice chips. Lungs CTA, dim posterior. Encouraged coughing, deep breathing and IS use. RT weaned her off O2- as of this time she is 93% on RA at rest. New peripheral IV started in R forearm working well. Able to make needs known and calls appropriately. Light in reach.
[2018-06-13] MEDS: LACTATED RINGERS 1,000 ML 1000 ML IV (12:28)
--- NOTE | 2018-06-13 16:46 | PM.PN.1 ---
Subjective Date Patient Seen: 06/13/18 Time Patient Seen: 16:46 Interval history: Celena reports she is feeling much better today. Her says she is brighter and looks almost back to herself. She denies any abdominal pain. She says she has required pain medication only once this morning about 2:00 a.m.. Since then she says she feels rumbling in her belly and feels that she is about to pass flatus but it just has not happened yet. She denies any nausea whatsoever. She has had greatly decreased output from her NG tube. Exam Vital Signs (past 8 hours): - 06/13/18 09:24 06/13/18 10:08 06/13/18 10:59 Temperature Pulse Rate Respiratory Rate Blood Pressure Pulse Oximetry 95 91 92 06/13/18 11:15 06/13/18 11:53 06/13/18 15:19 Temperature 98.5 F 98.3 F Pulse Rate 73 82 Respiratory Rate 16 18 Blood Pressure 135/76 147/73 H Pulse Oximetry 93 97 93 Fraction of Inspired Oxygen 21 Oxygen Delivery Method Room Air Oxygen Flow Rate 0 Narrative Exam Narrative: Lungs: Clear bilaterally Heart: Regular rate and rhythm without murmur rub or gallop Abdomen: Soft, minimal tenderness to palpation around the incision, normoactive bowel sounds. Extremities: Warm and well perfused without edema Objective Labs Result Diagrams: 06/13/18 06:19 06/13/18 06:19 Labs: Laboratory Results - last 24 hr 06/13/18 06/13/18 06:19 06:19 WBC 6.6 RBC 4.37 Hgb 12.3 Hct 36.2 MCV 82.8 MCH 28.1 MCHC 33.9 RDW 14.1 Plt Count 422 H Neut % (Auto) 77.0 H Lymph % (Auto) 8.5 L [place] % (Auto) 11.9 Eos % (Auto) 2.5 Baso % (Auto) 0.1 Neut # (Auto) 5100 Sodium 136 L Potassium 3.6 Chloride 94 L Carbon Dioxide 35 H BUN 28 H Creatinine 1.20 H Estimated GFR 46.6 L BUN/Creatinine Ratio 23.3 H Glucose 103 H Calcium 7.5 L Assessment & Plan Plan: Assessment/Plan Narrative: Recovering and improving as expected after laparotomy with removal of small bowel foreign body and correction of small bowel obstruction. I have removed Celena's NG tube but we will keep NPO with sparing ice chips. She can have hard candy, gum, or lozenges to help with throat discomfort. This will also stimulate bowel function. Quality VTE Deep Vein Thrombosis/Pulmonary Embolism Present on Admission: No
[2018-06-13] MEDS: KETOROLAC 30 MG/ML VIAL IV (20:11)
--- NOTE | 2018-06-13 22:47 | PC.NURSE ---
THA SHIFT: Dr. Cook at bedside this shift. Dr. Cook removed patient's NGT. Patient relieved tube out. Patient has not had nausea complaints after tube removed. Patient walked twice this shift in halls, and also took shower. No acute distress, VSS. Call light in reach. Will continue to monitor.
[2018-06-14] VITALS (7 sets, daily range): BP systolic 126–144; BP diastolic 62–75; PULSE 62–76; RESP 14–20; TEMP 36–37; O2SAT 93–97
[2018-06-14] MEDS: METOCLOPRAMIDE 10 MG/2 ML INJ 5 MG IV ×3 (06:26→21:23)
[2018-06-14] MEDS: LACTATED RINGERS 1,000 ML 125 ML IV ×3 (06:29→22:56)
[2018-06-14] MEDS: ENOXAPARIN 40 MG/0.4 ML SYRINGE SUBCUT (09:01)
[2018-06-14] MEDS: KETOROLAC 30 MG/ML VIAL IV (09:06)
--- NOTE | 2018-06-14 11:34 | PC.NURSE ---
Pt ambulating in hallway. Given toradol IV prior and pt denies pain at this time. Passing flatus with active bowel tones. Vertical abdominal incision without drainage or signs of inflammation. Wound edges well approximated. Pt sitting up in chair at this time.
--- NOTE | 2018-06-14 11:53 | CM.DPC ---
DCP Cont: Spoke to patient today. Pleasant, alert and oriented. Stated that she is feeling better. Has graduated to ice chips at this point, no longer has NG tube. Patient feels that she can go home when she is medically cleared, and that her bowels are working. P: DCP to continue to assess. Patient plans on going home when stable. Delisa Fletcher RN/District Operations Manager
--- NOTE | 2018-06-14 18:49 | PM.PN.1 ---
Subjective Date Patient Seen: 06/14/18 Time Patient Seen: 18:49 Interval history: Feeling much better today. Passing flatus and has already walked in the halls three times. Denies any nausea. Pain has been well controlled. Exam Vital Signs (past 8 hours): - 06/14/18 11:51 06/14/18 15:54 Temperature 97.6 F 96.8 F L Pulse Rate 62 66 Respiratory Rate 20 18 Blood Pressure 144/74 H 134/75 Pulse Oximetry 96 97 Fraction of Inspired Oxygen 21 Oxygen Delivery Method Room Air Oxygen Flow Rate 0 Narrative Exam Narrative: Abdomen is soft and nontender with active bowel sounds. Incision is clean and dry and in tact. Minimal bruising Objective Labs Result Diagrams: 06/13/18 06:19 06/13/18 06:19 Assessment & Plan Plan: Assessment/Plan Narrative: POD#2 after exp laparotomy for gall stone ileus. Advance diet this evening. Plan to change to oral meds in the AM Quality VTE Deep Vein Thrombosis/Pulmonary Embolism Present on Admission: No
[2018-06-15] MEDS: KETOROLAC 30 MG/ML VIAL IV ×2 (00:08→09:07)
--- NOTE | 2018-06-15 00:18 | PC.NURSE ---
Addendum entered by Nichole Gomez R.N. 06/15/18 05:10: Dr Cook informed of UOP since chavez removed as well as 400cc liquid stool output and results of bladder scan. New order received for fluid bolus. Original Note: Addendum entered by Nichole Gomez R.N. 06/15/18 04:56: Assisted to bathroom where patient had soiled her pad and then had 400cc brown/green liquid stool along with 150cc clear yellow urine. Stool sent to lab for viral culture as per MD order. Patient feels as though she emptied bladder but since catheter removed previous shift and had only 150cc + x1 void prior to this 150cc bladder scan done showing only 72cc of urine in bladder. Original Note: Patient is alert and oriented. Breath sounds diminished but CTA with RA sat of 97%. HRR. Denies nausea. BT present and abdomen is soft; had stool on previous shift. Denies dysuria, frequency, urgency or incontinence since catheter removed. Abdominal incision is open to air, well approximated and without redness or drainage. Independent with bed mobility. Fall risk score is high but patient is oriented and calls appropriately for assist so bed alarm is not activated at this time. Refusing SCD's as states she can't sleep with them on. Currently having 4/10 discomfort in incision which is exacerbated by movement; medicated with Toradol.
[2018-06-15 03:49] VITALS: BP 153/76; PULSE 65; RESP 18; TEMP 36.8; O2SAT 94
[2018-06-15] MEDS: LACTATED RINGERS 1,000 ML 1000 ML IV (05:21)
[2018-06-15 06:01] LABS: BUN Creatinine Ratio 17.8 (6-22); Blood Urea Nitrogen 16 mg/dL (7-17); Calcium 7.3 mg/dL (8.4-10.2); Carbon Dioxide 35 mmol/L (22-32); Chloride 98 mmol/L (98-107); Estimated Glomerular Filt Rate > 60.0 mL/min (>60); Glucose 101 mg/dL (70-100); HEMOLYSIS < 15 (0-50); Potassium 3.1 mmol/L (3.4-5.1); Sodium 137 mmol/L (137-145)
[2018-06-15] MEDS: METOCLOPRAMIDE 10 MG/2 ML INJ 5 MG IV ×2 (06:04→13:44)
[2018-06-15] MEDS: LACTATED RINGERS 1,000 ML 125 ML IV (07:33)
[2018-06-15 07:55] VITALS: BP 150/80; PULSE 61; RESP 18; TEMP 36.6; O2SAT 97
[2018-06-15] MEDS: ENOXAPARIN 40 MG/0.4 ML SYRINGE SUBCUT (09:13)
[2018-06-15 11:21] VITALS: BP 135/79; PULSE 72; RESP 18; TEMP 37; O2SAT 95
[2018-06-15] MEDS: POTASSIUM CHLORIDE 40 MEQ in SODIUM CHLORIDE 0.9% 500 ML 130 ML IV (12:54)
--- NOTE | 2018-06-15 12:55 | PC.NURSE ---
AM Shift Pt continues with no nausea and pain well controlled with Toradol. Soft diet, flatus+ BT+ Midline incision SHADIA, dermabond. Using light for needs, up ambulating in halls.
[2018-06-15 15:42] VITALS: BP 127/79; PULSE 67; RESP 18; TEMP 35.9; O2SAT 97
--- NOTE | 2018-06-15 16:39 | PM.PNPO.1 ---
Subjective Date Patient Seen: 06/15/18 Time Patient Seen: 16:39 Interval history: Patient feels all right. Passing gas and having bowel movements. Tolerating p.o. without nausea. Potassium presently being replaced. Exam Vital Signs (past 8 hours): - 06/15/18 11:21 06/15/18 15:42 Temperature 98.6 F 96.6 F L Pulse Rate 72 67 Respiratory Rate 18 18 Blood Pressure 135/79 127/79 Pulse Oximetry 95 97 Fraction of Inspired Oxygen 21 Oxygen Delivery Method Room Air Oxygen Flow Rate 0 Narrative Exam Narrative: Operative no apparent distress. Lungs are clear. Heart regular rate and rhythm slow no murmur gallop. Abdomen is mildly protuberant soft nontender. Midline wound is intact without cellulitis. Objective Labs Result Diagrams: 06/13/18 06:19 06/15/18 05:31 Labs: Laboratory Results - last 24 hr 06/15/18 05:31 Sodium 137 Potassium 3.1 L Chloride 98 Carbon Dioxide 35 H BUN 16 Creatinine 0.90 Estimated GFR > 60.0 BUN/Creatinine Ratio 17.8 Glucose 101 H Calcium 7.3 L Assessment & Plan Post-op Postoperative Procedures Operation Date: 06/12/18 12:00 Actual Procedures Side Surgeon p small bowell resection Whit Cook MD Time Spent With Patient less than 15 minutes Quality VTE Deep Vein Thrombosis/Pulmonary Embolism Present on Admission: No
[2018-06-15 19:36] VITALS: BP 145/74; PULSE 68; RESP 18; TEMP 36.4; O2SAT 97
[2018-06-15 23:45] VITALS: BP 145/74; PULSE 65; RESP 16; TEMP 36.7; O2SAT 96
[2018-06-15] MEDS: diphenhydrAMINE 25 MG TABLET PO (23:56)
[2018-06-16 03:20] VITALS: BP 138/79; PULSE 63; RESP 16; TEMP 36.6; O2SAT 95
[2018-06-16 07:35] VITALS: BP 140/79; PULSE 65; RESP 16; TEMP 36.8; O2SAT 96
[2018-06-16 11:53] VITALS: BP 143/78; PULSE 71; RESP 16; TEMP 36.7; O2SAT 97
--- NOTE | 2018-06-16 14:57 | P.DS_ITS ---
History of Present Illness Date Patient Seen: 06/16/18 Time Patient Seen: 14:55 Chief complaint: right side pain, nausea heartburn Narrative: Very pleasant 53-year-old lady who presented to the emergency room with complaint of nausea and vomiting. She was notably hypovolemic with prerenal azotemia. She was admitted to the hospital for hydration and supportive care. Discharge Providers Date of admission: 06/09/18 11:45 Primary care physician: Greg Garcia MD Consults: 06/12/18 14:49 Consult to Discharge Planning Routine Comment: Discharge provider: Whit Cook MD Summary Discharge Diagnosis: Small-bowel obstruction secondary to foreign body. Hospital Course: Celena is admitted the hospital had and NG tube was placed for bowel rest and decompression. She was aggressively hydrated and resuscitated. After an appropriate period of conservative management, she had not improved and so she was taken to the operating room for exploratory laparotomy. At the time of laparotomy common she was noted to have a oval foreign body in the mid small bowel. This was visually consistent with a gallstone but pathology is still pending. The foreign body was removed and primary anastomosis was performed at the site of a small-bowel obstruction. Celena was returned to [facility] floor for continued convalescence and began to improve rapidly. At the time of discharge, she has had very minimal pain medication and her bowels are working. She is walking the halls unassisted and tolerating a regular diet. She is being discharged to her home in the care of her and family. Status at Discharge Cognitive/behavioral status at discharge: Normal Functional status at discharge: independent ambulation Overall status at discharge: patient is progressing back to baseline Time Spent with Patient Less than 30 minutes Exam Vital Signs (past 8 hours): - 06/16/18 07:35 06/16/18 11:53 Temperature 98.2 F 98.1 F Pulse Rate 65 71 Respiratory Rate 16 16 Blood Pressure 140/79 143/78 H Pulse Oximetry 96 97 Fraction of Inspired Oxygen 21 Oxygen Delivery Method Room Air Oxygen Flow Rate 0 Objective Labs Result Diagrams: 06/13/18 06:19 06/15/18 05:31 Discharge Plan Discharge Plan Patient Disposition: Home Provider Discharge Instructions Diet: Diet as Tolerated Activity: You may shower as desired. Do not soak the incision in water for at least 2 weeks. Remember to take a stool softener at least twice daily while using narcotic pain medications. Skin/Wound/Dressing Care Report to your healthcare provider any signs of infection, such as:: chills, fever, night sweats, increased pain and unusual drainage Discharge Data Primary Care Provider: Greg Garcia Attending Provider: Whit Cook Admit Date/Time: 06/09/18 11:45 Quality VTE Deep Vein Thrombosis/Pulmonary Embolism Present on Admission: No
== END 2018-06-16 15:11 | disposition home or self-care (01) | DRG 345 ==
LOC: ED 08:36 → AC 11:46
PROVIDERS: Admitting Provider Surgery; Emergency Provider Emergency Medicine; Family Provider Family Medicine; PCP Family Medicine; Visit Provider Surgery
PROC: 0DC80ZZ Extirpation of Matter from Small Intestine, Open Approach (ICD-10-PCS; CPT 49000; principal; 2018-06-12 12:00)
DX: K56.3 Gallstone ileus (principal); N17.9 Acute kidney failure, unspecified; I10 Essential (primary) hypertension; E78.5 Hyperlipidemia, unspecified
CPT/HCPCS: 36415; 44020; 74022; 80048; 80053; 83605; 83690; 84145; 85025; 87040; 87252; 94760; 94762; 96361; 96374; 96376; 99284; 99285; J0330; J1100; J1170; J1650; J1885; J2250; J2405; J2704; J2765; J3010; J3480

== ENCOUNTER → 2019-04-09 10:23 | Outpatient (CLI) | payer OTHER, SELFPAY ==
[2018-06-09 12:49] VITALS: BMI 33.5
[2019-04-09 10:43] LABS: Add Manual Diff / Slide Review NO; Basophils Absolute Auto 0 /uL (0-100); Basophils Percent Auto 0.7 % (0-2); Eosinophils Absolute Auto 500 /uL (0-450); Eosinophils Percent Auto 8.3 % (2-4); Hematocrit 39.5 % (36-46); Hemoglobin 13.8 g/dL (12.0-16.0); Lymphocytes Absolute Auto 1000 /uL (1100-4500); Lymphocytes Percent Auto 16.9 % (25-40); Mean Corpuscular HGB Conc 34.9 % (30-36); Mean Corpuscular Hemoglobin 29.4 PG (26-34); Mean Corpuscular Volume 84.4 fL (80-100); Monocytes Absolute Auto 500 /uL (0-900); Monocytes Percent Auto 8.6 % (3-14); Neutrophils Absolute Auto 3700 /uL (1500-7000); Neutrophils Percent Auto 65.5 % (50-75); Platelet Count 381 X10^3/uL (150-400); Red Blood Cell Count 4.67 X10^6/uL (4.0-5.2); Red Cell Distribution Width 12.9 % (11.6-14.8); White Blood Cell Count 5.7 X10^3/uL (4.5-11.0)
[2019-04-09 11:34] LABS: Alanine Aminotransferase 31 IU/L (9-52); Albumin 4.5 g/dL (3.5-5.0); Albumin Globulin Ratio 1.6 (1.0-2.8); Alkaline Phosphatase 69 U/L (38-126); Aspartate Aminotransferase 25 IU/L (14-36); Bilirubin Total 0.8 mg/dL (0.2-1.3); Blood Urea Nitrogen 16 mg/dL (7-17); Calcium 9.9 mg/dL (8.4-10.2); Carbon Dioxide 27 mmol/L (22-32); Chloride 105 mmol/L (98-107); Cholesterol 211 mg/dL (140-199); Estimated Glomerular Filt Rate > 60.0 mL/min (>60); Globulin 2.9 g/dL (1.7-4.1); Glucose 109 mg/dL (70-100); HDL Cholesterol 68 mg/dL (40-60); HEMOLYSIS < 15 (0-50); Hemoglobin A1C% w Est Avg Glu 5.7 % (4.0-6.0); LDL Cholesterol Calculated 116 mg/dL (<100); Potassium 4.9 mmol/L (3.4-5.1); Sodium 141 mmol/L (137-145); Total Protein 7.4 g/dL (6.3-8.2); Triglycerides 137 mg/dL (35-150)
[2019-04-09 12:01] LABS: Thyroid Stimulating Hormone 8.71 uIU/mL (0.47-4.68)
== END ==
PROVIDERS: PCP Family Medicine; Visit Provider Family Medicine
DX: E03.9 Hypothyroidism, unspecified (principal); E78.2 Mixed hyperlipidemia; I10 Essential (primary) hypertension; Z13.1 Encounter for screening for diabetes mellitus; Z13.6 Encounter for screening for cardiovascular disorders
CPT/HCPCS: 36415; 80053; 80061; 83036; 84443; 85025

== ENCOUNTER → 2019-06-15 16:21 | Outpatient (CLI) | payer OTHER, SELFPAY ==
[2018-06-09 12:49] VITALS: BMI 33.5
[2019-06-15 17:38] LABS: Blood Urea Nitrogen 23 mg/dL (7-17); Calcium 9.8 mg/dL (8.4-10.2); Carbon Dioxide 29 mmol/L (22-32); Chloride 103 mmol/L (98-107); Estimated Glomerular Filt Rate 57.4 mL/min (>60); Glucose 102 mg/dL (70-100); HEMOLYSIS < 15 (0-50); Potassium 4.2 mmol/L (3.4-5.1); Sodium 141 mmol/L (137-145)
[2019-06-15 18:16] LABS: Thyroid Stimulating Hormone 6.14 uIU/mL (0.47-4.68)
== END ==
PROVIDERS: PCP Family Medicine; Visit Provider Family Medicine
DX: I10 Essential (primary) hypertension (principal)
CPT/HCPCS: 36415; 80048; 84443

== ENCOUNTER → 2019-09-11 09:46 | Outpatient (CLI) | payer OTHER, SELFPAY ==
[2018-06-09 12:49] VITALS: BMI 33.5
[2019-09-11 10:36] LABS: Alanine Aminotransferase 27 IU/L (<35); Albumin 4.6 g/dL (3.5-5.0); Albumin Globulin Ratio 1.4 (1.0-2.8); Alkaline Phosphatase 72 U/L (38-126); Aspartate Aminotransferase 27 IU/L (14-36); BUN Creatinine Ratio 21.1 (6-22); Bilirubin Total 0.8 mg/dL (0.2-1.3); Blood Urea Nitrogen 19 mg/dL (7-17); Calcium 9.6 mg/dL (8.4-10.2); Carbon Dioxide 30 mmol/L (22-32); Chloride 99 mmol/L (98-107); Cholesterol 225 mg/dL (140-199); Estimated Glomerular Filt Rate > 60.0 mL/min (>60); Globulin 3.3 g/dL (1.7-4.1); Glucose 109 mg/dL (70-100); HDL Cholesterol 62 mg/dL (40-60); HEMOLYSIS < 15 (0-50); LDL Cholesterol Calculated 133 mg/dL (<100); Potassium 4.5 mmol/L (3.4-5.1); Sodium 136 mmol/L (137-145); Total Protein 7.9 g/dL (6.3-8.2); Triglycerides 151 mg/dL (35-150)
[2019-09-11 11:03] LABS: Thyroid Stimulating Hormone 6.11 uIU/mL (0.47-4.68)
== END ==
PROVIDERS: PCP Family Medicine; Visit Provider Family Medicine
DX: I10 Essential (primary) hypertension (principal)
CPT/HCPCS: 36415; 80053; 80061; 84443

== ENCOUNTER → 2019-12-04 08:49 | Outpatient (CLI) | payer OTHER, SELFPAY ==
[2018-06-09 12:49] VITALS: BMI 33.5
[2019-12-04 10:15] LABS: Blood Urea Nitrogen 16 mg/dL (7-17); Calcium 9.9 mg/dL (8.4-10.2); Carbon Dioxide 28 mmol/L (22-32); Chloride 103 mmol/L (98-107); Cholesterol 217 mg/dL (140-199); Estimated Glomerular Filt Rate > 60.0 mL/min (>60); Glucose 114 mg/dL (70-100); HDL Cholesterol 65 mg/dL (40-60); HEMOLYSIS < 15 (0-50); LDL Cholesterol Calculated 128 mg/dL (<100); Potassium 5.1 mmol/L (3.4-5.1); Sodium 138 mmol/L (137-145); Triglycerides 121 mg/dL (35-150)
[2019-12-04 10:45] LABS: Thyroid Stimulating Hormone 1.05 uIU/mL (0.47-4.68)
== END ==
PROVIDERS: PCP Family Medicine; Referring Provider Family Medicine; Visit Provider Family Medicine
DX: I10 Essential (primary) hypertension (principal)
CPT/HCPCS: 36415; 80048; 80061; 84443

== ENCOUNTER → 2021-01-06 08:48 | Outpatient (CLI) | payer BC, SELFPAY ==
[2018-06-09 12:49] VITALS: BMI 33.5
[2021-01-06 11:16] LABS: Alanine Aminotransferase 28 IU/L (<35); Albumin 4.3 g/dL (3.5-5.0); Albumin Globulin Ratio 1.4 (1.0-2.8); Alkaline Phosphatase 85 U/L (38-126); Aspartate Aminotransferase 27 IU/L (14-36); BUN Creatinine Ratio 22.7 (6-22); Bilirubin Total 0.6 mg/dL (0.2-1.3); Blood Urea Nitrogen 17 mg/dL (7-17); Calcium 9.5 mg/dL (8.4-10.2); Carbon Dioxide 29 mmol/L (22-32); Chloride 101 mmol/L (98-107); Cholesterol 207 mg/dL (140-199); Estimated Glomerular Filt Rate > 60.0 mL/min (>60); Globulin 3.1 g/dL (1.7-4.1); Glucose 118 mg/dL (70-100); HDL Cholesterol 61 mg/dL (40-60); HEMOLYSIS < 15 (0-50); LDL Cholesterol Calculated 124 mg/dL (<100); Potassium 4.7 mmol/L (3.4-5.1); Sodium 137 mmol/L (137-145); Total Protein 7.4 g/dL (6.3-8.2); Triglycerides 109 mg/dL (35-150)
[2021-01-06 11:43] LABS: Thyroid Stimulating Hormone 0.643 uIU/mL (0.47-4.68)
== END ==
PROVIDERS: PCP Registered Nurse; Referring Provider Registered Nurse; Visit Provider Registered Nurse
DX: E03.9 Hypothyroidism, unspecified (principal); E78.2 Mixed hyperlipidemia; I10 Essential (primary) hypertension
CPT/HCPCS: 36415; 80053; 80061; 84443

== ENCOUNTER → 2022-07-20 08:12 | Outpatient (CLI) | payer BC, SELFPAY ==
[2022-03-25 08:29] VITALS: BMI 33.5
[2022-07-20 08:56] LABS: Hematocrit 39.8 % (36-46); Hemoglobin 13.2 g/dL (12.0-16.0); Mean Corpuscular HGB Conc 33.3 % (30-36); Mean Corpuscular Hemoglobin 27.8 PG (26-34); Mean Corpuscular Volume 83.6 fL (80-100); Platelet Count 422 X10^3/uL (150-400); Red Blood Cell Count 4.76 X10^6/uL (4.0-5.2); Red Cell Distribution Width 13.1 % (11.6-14.8); White Blood Cell Count 6.5 X10^3/uL (4.5-11.0)
[2022-07-20 09:16] LABS: Alanine Aminotransferase 27 IU/L (<35); Albumin 4.3 g/dL (3.5-5.0); Albumin Globulin Ratio 1.2 (1.0-2.8); Alkaline Phosphatase 84 U/L (38-126); Aspartate Aminotransferase 25 IU/L (14-36); BUN Creatinine Ratio 21.8 (6-22); Bilirubin Total 0.7 mg/dL (0.2-1.3); Blood Urea Nitrogen 17 mg/dL (7-17); Calcium 9.1 mg/dL (8.4-10.2); Carbon Dioxide 29 mmol/L (22-32); Chloride 99 mmol/L (98-107); Cholesterol 222 mg/dL (140-199); Estimated Glomerular Filt Rate > 60 mL/min (>60); Globulin 3.5 g/dL (1.7-4.1); Glucose 118 mg/dL (70-100); HDL Cholesterol 60 mg/dL (40-60); HEMOLYSIS < 15 (0-50); LDL Cholesterol Calculated 134 mg/dL (<100); Potassium 4.4 mmol/L (3.4-5.1); Sodium 135 mmol/L (137-145); Total Protein 7.8 g/dL (6.3-8.2); Triglycerides 138 mg/dL (35-150)
[2022-07-20 09:38] LABS: TSH w/ Reflex to FT4 1.03 uIU/mL (0.47-4.68)
[2022-07-20 11:46] LABS: Hemoglobin A1C% w Est Avg Glu 6.4 % (4.0-6.0)
== END ==
PROVIDERS: PCP Registered Nurse Diabetes Educator; Referring Provider Registered Nurse Diabetes Educator; Visit Provider Registered Nurse Diabetes Educator
DX: E03.9 Hypothyroidism, unspecified (principal); E78.2 Mixed hyperlipidemia; I10 Essential (primary) hypertension; R73.01 Impaired fasting glucose
CPT/HCPCS: 36415; 80053; 80061; 83036; 84443; 85027

== ENCOUNTER → 2023-12-13 09:39 | Outpatient (CLI) | payer BC, SELFPAY ==
[2022-03-25 08:29] VITALS: BMI 33.5
[2023-12-13 10:18] LABS: Hematocrit 40.7 % (36-46); Hemoglobin 13.4 g/dL (12.0-16.0); Mean Corpuscular HGB Conc 32.9 % (30-36); Mean Corpuscular Hemoglobin 27.5 PG (26-34); Mean Corpuscular Volume 83.6 fL (80-100); Platelet Count 422 X10^3/uL (150-400); Red Blood Cell Count 4.87 X10^6/uL (4.0-5.2); Red Cell Distribution Width 13.5 % (11.6-14.8); White Blood Cell Count 7.4 X10^3/uL (4.5-11.0)
[2023-12-13 10:27] LABS: Hemoglobin A1C% w Est Avg Glu 7.1 % (4.0-6.0)
[2023-12-13 10:52] LABS: Alanine Aminotransferase 31 IU/L (<35); Albumin 4.4 g/dL (3.5-5.0); Albumin Globulin Ratio 1.3 (1.0-2.8); Alkaline Phosphatase 84 U/L (38-126); Aspartate Aminotransferase 25 IU/L (14-36); Blood Urea Nitrogen 16 mg/dL (7-17); Calcium 9.9 mg/dL (8.4-10.2); Carbon Dioxide 31 mmol/L (22-32); Chloride 100 mmol/L (98-107); Cholesterol 207 mg/dL (140-199); Estimated Glomerular Filt Rate > 60 mL/min (>60); Globulin 3.3 g/dL (1.7-4.1); Glucose 138 mg/dL (80-110); HDL Cholesterol 72 mg/dL (40-60); HEMOLYSIS < 15 (0-50); LDL Cholesterol Calculated 108 mg/dL (<100); Potassium 5.3 mmol/L (3.4-5.1); Sodium 137 mmol/L (137-145); Total Protein 7.7 g/dL (6.3-8.2); Triglycerides 137 mg/dL (35-150)
[2023-12-13 11:22] LABS: TSH w/ Reflex to FT4 1.39 uIU/mL (0.47-4.68)
== END ==
PROVIDERS: PCP Registered Nurse Diabetes Educator; Referring Provider Registered Nurse Diabetes Educator; Visit Provider Registered Nurse Diabetes Educator
DX: R73.01 Impaired fasting glucose (principal); R73.9 Hyperglycemia, unspecified; I10 Essential (primary) hypertension; E78.2 Mixed hyperlipidemia; E03.9 Hypothyroidism, unspecified
CPT/HCPCS: 36415; 80053; 80061; 83036; 84443; 85027

== ENCOUNTER → 2024-01-01 09:10 | Outpatient (CLI) | payer BC, SELFPAY ==
[2022-03-25 08:29] VITALS: BMI 33.5
[2024-01-01 10:46] LABS: BUN Creatinine Ratio 21.3 (6-22); Blood Urea Nitrogen 17 mg/dL (7-17); Calcium 10.1 mg/dL (8.4-10.2); Carbon Dioxide 31 mmol/L (22-32); Chloride 103 mmol/L (98-107); Estimated Glomerular Filt Rate > 60 mL/min (>60); Glucose 107 mg/dL (80-110); HEMOLYSIS < 15 (0-50); Potassium 4.9 mmol/L (3.4-5.1); Sodium 139 mmol/L (137-145)
== END ==
PROVIDERS: PCP Registered Nurse Diabetes Educator; Referring Provider Registered Nurse Diabetes Educator; Visit Provider Registered Nurse Diabetes Educator
DX: I10 Essential (primary) hypertension (principal)
CPT/HCPCS: 36415; 80048

== ENCOUNTER → 2024-03-13 10:56 | Outpatient (CLI) | payer BC, SELFPAY ==
[2022-03-25 08:29] VITALS: BMI 33.5
[2024-03-13 11:28] LABS: Mean Corpuscular HGB Conc 34.1 % (30-36); Mean Corpuscular Hemoglobin 27.8 PG (26-34); Mean Corpuscular Volume 81.4 fL (80-100); Platelet Count 360 X10^3/uL (150-400); Red Blood Cell Count 4.67 X10^6/uL (4.0-5.2); Red Cell Distribution Width 13.4 % (11.6-14.8); White Blood Cell Count 7.8 X10^3/uL (4.5-11.0)
[2024-03-13 11:44] LABS: Hemoglobin A1C% w Est Avg Glu 6.7 % (4.0-6.0)
[2024-03-13 11:47] LABS: Cholesterol 158 mg/dL (140-199); HDL Cholesterol 56 mg/dL (40-60); LDL Cholesterol Calculated 85 mg/dL (<100); Triglycerides 87 mg/dL (35-150)
[2024-03-13 12:02] LABS: Creatinine Urine Random 29.25 mg/dL
[2024-03-13 12:06] LABS: Microalbumin Urine Random 0.7 mg/dL (0-1.6)
== END ==
PROVIDERS: PCP Registered Nurse Diabetes Educator; Referring Provider Registered Nurse Diabetes Educator; Visit Provider Registered Nurse Diabetes Educator
DX: E11.9 Type 2 diabetes mellitus without complications (principal); E78.5 Hyperlipidemia, unspecified; I10 Essential (primary) hypertension
CPT/HCPCS: 36415; 80061; 82043; 82570; 83036; 85027

== ENCOUNTER → 2024-09-04 09:18 | Outpatient (CLI) | payer BC, SELFPAY ==
[2022-03-25 08:29] VITALS: BMI 33.5
[2024-09-04 11:14] LABS: Hemoglobin A1C% w Est Avg Glu 6.1 % (4.0-6.0)
[2024-09-04 11:58] LABS: TSH w/ Reflex to FT4 < 0.02 uIU/mL (0.47-4.68)
[2024-09-04 14:27] LABS: Free T4, Direct Thyroxine 1.68 ng/dL (0.78-2.19)
== END ==
PROVIDERS: PCP Registered Nurse Diabetes Educator; Referring Provider Registered Nurse Diabetes Educator; Visit Provider Registered Nurse Diabetes Educator
DX: E11.9 Type 2 diabetes mellitus without complications (principal); E03.9 Hypothyroidism, unspecified
CPT/HCPCS: 36415; 83036; 84439; 84443

== ENCOUNTER → 2024-10-30 09:46 | Outpatient (CLI) | payer BC, SELFPAY ==
[2022-03-25 08:29] VITALS: BMI 33.5
[2024-10-30 12:38] LABS: TSH w/ Reflex to FT4 0.22 uIU/mL (0.47-4.68)
[2024-10-30 13:11] LABS: Free T4, Direct Thyroxine 1.59 ng/dL (0.78-2.19)
== END ==
PROVIDERS: PCP Registered Nurse Diabetes Educator; Referring Provider Registered Nurse Diabetes Educator; Visit Provider Registered Nurse Diabetes Educator
DX: E03.9 Hypothyroidism, unspecified (principal)
CPT/HCPCS: 36415; 84439; 84443

== ENCOUNTER → 2024-12-25 09:56 | Outpatient (CLI) | payer BC, SELFPAY ==
[2022-03-25 08:29] VITALS: BMI 33.5
[2024-12-25 11:09] LABS: TSH w/ Reflex to FT4 0.92 uIU/mL (0.47-4.68)
== END ==
PROVIDERS: PCP Registered Nurse Diabetes Educator; Referring Provider Registered Nurse Diabetes Educator; Visit Provider Registered Nurse Diabetes Educator
DX: E03.9 Hypothyroidism, unspecified (principal)
CPT/HCPCS: 36415; 84443

== ENCOUNTER → 2025-03-26 09:15 | Outpatient (CLI) | payer BC, SELFPAY ==
[2022-03-25 08:29] VITALS: BMI 33.5
[2025-03-26 10:06] LABS: Creatinine Urine Random 116.77 mg/dL
[2025-03-26 10:07] LABS: Hematocrit 40.6 % (36-46); Hemoglobin 13.8 g/dL (12.0-16.0); Mean Corpuscular Hemoglobin 29.1 PG (26-34); Mean Corpuscular Volume 85.6 fL (80-100); Platelet Count 375 X10^3/uL (150-400); Red Blood Cell Count 4.75 X10^6/uL (4.0-5.2); White Blood Cell Count 4.8 X10^3/uL (4.5-11.0)
[2025-03-26 10:12] LABS: Microalbumin Urine Random 0.6 mg/dL (0-1.6)
[2025-03-26 10:17] LABS: Hemoglobin A1C% w Est Avg Glu 5.5 % (4.0-6.0)
[2025-03-26 10:45] LABS: Alanine Aminotransferase 22 IU/L (<35); Albumin 4.5 g/dL (3.5-5.0); Albumin Globulin Ratio 1.7 (1.0-2.8); Alkaline Phosphatase 56 U/L (38-126); Aspartate Aminotransferase 26 IU/L (14-36); BUN Creatinine Ratio 20.8 (6-22); Blood Urea Nitrogen 16 mg/dL (7-17); Calcium 9.5 mg/dL (8.4-10.2); Carbon Dioxide 26 mmol/L (22-32); Chloride 101 mmol/L (98-107); Cholesterol 186 mg/dL (140-199); Estimated Glomerular Filt Rate > 60 mL/min (>60); Globulin 2.6 g/dL (1.7-4.1); Glucose 98 mg/dL (70-99); HDL Cholesterol 83 mg/dL (40-60); HEMOLYSIS < 15 (0-50); LDL Cholesterol Calculated 87 mg/dL (<100); Potassium 4.7 mmol/L (3.4-5.1); Sodium 136 mmol/L (137-145); Total Protein 7.1 g/dL (6.3-8.2); Triglycerides 81 mg/dL (35-150)
[2025-03-26 11:30] LABS: TSH w/ Reflex to FT4 4.62 uIU/mL (0.47-4.68)
== END ==
PROVIDERS: PCP Registered Nurse Diabetes Educator; Referring Provider Registered Nurse Diabetes Educator; Visit Provider Registered Nurse Diabetes Educator
DX: E11.9 Type 2 diabetes mellitus without complications (principal); E78.5 Hyperlipidemia, unspecified; I10 Essential (primary) hypertension; E03.9 Hypothyroidism, unspecified
CPT/HCPCS: 80053; 80061; 82043; 82570; 83036; 84443; 85027

== ENCOUNTER → 2025-09-03 08:46 | Outpatient (CLI) | payer BC, SELFPAY ==
[2022-03-25 08:29] VITALS: BMI 33.5
[2025-09-03 10:10] LABS: Hemoglobin A1C% w Est Avg Glu 5.8 % (4.0-6.0)
[2025-09-03 10:37] LABS: TSH w/ Reflex to FT4 3.15 uIU/mL (0.47-4.68)
== END ==
PROVIDERS: PCP Registered Nurse Diabetes Educator; Referring Provider Registered Nurse Diabetes Educator; Visit Provider Registered Nurse Diabetes Educator
DX: E03.9 Hypothyroidism, unspecified (principal); E11.9 Type 2 diabetes mellitus without complications
CPT/HCPCS: 36415; 83036; 84443